=== PATIENT | male | born 1985 | race Caucasian/White ===

== ENCOUNTER 2016-10-23 22:00 | Emergency (ER) | payer OTHER ==
[2016-10-23 23:47] VITALS: BP 111/68
== END 2016-10-23 23:47 | disposition home or self-care (01) ==
LOC: ED 22:00
DX: H53.8 Other visual disturbances (principal); J45.909 Unspecified asthma, uncomplicated

== ENCOUNTER 2016-12-02 19:08 | Emergency (ER) | payer OTHER ==
[2016-12-02 21:49] VITALS: BP 161/100
== END 2016-12-02 21:49 | disposition home or self-care (01) ==
LOC: ED 19:08
DX: M54.9 Dorsalgia, unspecified (principal); J45.909 Unspecified asthma, uncomplicated
CPT/HCPCS: J1885

== ENCOUNTER 2017-06-27 18:28 | Emergency (ER) | payer OTHER | END 2017-06-27 18:42 | disposition left against medical advice (07) | LOC: ED 18:28 | DX: Z53.21 Procedure and treatment not carried out due to patient leaving prior to being seen by health care provider (principal) ==

== ENCOUNTER 2019-10-28 23:10 | Emergency (ER) | payer OTHER ==
[~2019-10-28] VITALS: Ht 175.3 cm; Wt 125.3 kg
[2019-10-28 23:22] VITALS: Ht 175.3 cm; Wt 125.3 kg
[2019-10-29 03:50] VITALS: BP 123/86
== END 2019-10-29 03:50 | disposition home or self-care (01) ==
LOC: ED 23:10
DX: R07.89 Other chest pain (principal); E66.9 Obesity, unspecified; J45.909 Unspecified asthma, uncomplicated; Z88.6 Allergy status to analgesic agent

== ENCOUNTER 2020-04-20 15:35 | Emergency (ER) | payer OTHER ==
[~2020-04-20] VITALS: Ht 172.7 cm; Wt 122.5 kg
[2020-04-20 15:40] VITALS: Ht 172.7 cm; Wt 122.5 kg
[2020-04-20 16:44] LABS: BASOPHIL % 0.5 % (0.2-1.5); PLATELET COUNT 263 x10^3mcL (152-348); RED CELL DISTRIBUTION WIDTH 13.7 % (12.1-16.2)
[2020-04-20 16:55] LABS: CALCIUM 8.9 mg/dL (8.5-10.1); CARBON DIOXIDE 26.8 mmol/L (21-32); CHLORIDE SERUM 105 mmol/L (98-107); GFR1 > 60 mL/min; GLUCOSE SERUM 89 mg/dL (74-106); SODIUM SERUM 143 mmol/L (136-145)
[2020-04-20 17:00] LABS: ALBUMIN 3.9 g/dL (3.4-5.0); ALKALINE PHOSPHATASE 96 U/L (46-116); ALT/SGPT 63 U/L (16-63); AST/SGOT 23 U/L (15-37); TOTAL PROTEIN, SERUM 7.7 g/dL (6.4-8.2)
[2020-04-20 21:36] VITALS: BP 129/71
== END 2020-04-20 21:36 | disposition home or self-care (01) ==
LOC: ED 15:35
DX: U07.1 COVID-19 (principal); J45.909 Unspecified asthma, uncomplicated; Z88.6 Allergy status to analgesic agent